=== PATIENT | female | born 1975 | race African-American/Black ===

== ENCOUNTER 2016-08-15 09:37 | Emergency (ER) | payer SELFPAY | END 2016-08-15 10:59 | disposition home or self-care (01) | LOC: D.ER 09:37 | DX: R51 Headache (principal) ==

== ENCOUNTER 2016-09-07 09:09 | Emergency (ER) | payer SELFPAY | END 2016-09-07 10:59 | disposition home or self-care (01) | LOC: D.ER 09:09 | DX: R51 Headache (principal) ==

== ENCOUNTER 2018-09-24 07:07 | Emergency (ER) | payer SELFPAY ==
[~2018-09-24] VITALS: Ht 167.6 cm; Wt 77.3 kg
[2018-09-24 07:09] VITALS: Ht 167.6 cm; Wt 77.3 kg
[2018-09-24 07:53] LABS: BASOPHILS 0.7 % (0-2); EOSINOPHILS 0.4 % (0-7); HEMATOCRIT 37.7 % (36.0-48.0); HEMOGLOBIN 11.8 g/dL (12-16); IMMATURE GRANULOCYTES 0.1 % (0-5); LYMPHOCYTES 27.4 % (15-50); MCH 23.3 pg (26.0-34.0); MCHC 31.3 g/dL (31.0-37.0); MCV 74.4 fL (80.0-100.0); MEAN PLATELET VOLUME 9.6 fL (7.4-10.4); MONOCYTES 6.2 % (2-11); NEUTROPHILS 65.2 % (40-80); RBC 5.07 10x6/uL (4.00-5.40); RDW 15.1 % (11.5-14.5); WBC 7.6 10x3/uL (4.8-10.8)
[2018-09-24 07:59] LABS: PLATELET COUNT 343 10x3/uL (130-400)
[2018-09-24 08:06] LABS: ALBUMIN 3.6 g/dL (3.4-5.0); ALKALINE PHOSPHATASE 63 U/L (46-116); ALT (SGPT) 28 U/L (10-68); BILIRUBIN - TOTAL 0.33 mg/dL (0.2-1.3); CALC OSMOLALITY 279 mosm/kg (275-300); CALCIUM 8.7 mg/dL (8.5-10.1); CARBON DIOXIDE 25.9 mmol/L (21.0-32.0); CHLORIDE - SERUM 106 mmol/L (98-107); CREATININE - SERUM 0.8 mg/dL (0.6-1.3); GLUCOSE 112 mg/dL (74-106); PROTEIN - SERUM 8.5 g/dL (6.4-8.2); SODIUM 141 mmol/L (136-145); UREA NITROGEN 7 mg/dL (7-18); eGFR NON AFRICAN AMERICAN 83 mL/min (90-120)
[2018-09-24 08:12] LABS: HCG - QUANTITATIVE (MATERNAL) 0 mIU/mL
[2018-09-24 08:16] LABS: APPEARANCE CLEAR (CLEAR); BACTERIA FEW /hpf (NONE SEEN); BILIRUBIN NEGATIVE (NEGATIVE); COLOR YELLOW (YELLOW); EPITHELIAL CELLS 0-5 /hpf (0-5); GLUCOSE NEGATIVE (NEGATIVE); KETONE NEGATIVE (NEGATIVE); MUCUS <1+ /lpf (NONE SEEN); NITRITE NEGATIVE (NEGATIVE); PROTEIN NEGATIVE (NEGATIVE); RED CELLS - URINE OCC /hpf (0-5); SPECIFIC GRAVITY 1.015 (1.005-1.020); UROBILINOGEN NORMAL (NORMAL); WHITE CELLS - URINE OCC /hpf (0-5)
[2018-09-24] MEDS ORDERED: ZOFRAN ODT4 MG/UDTAB PO (08:20)
[2018-09-24] MEDS ORDERED: ZANTAC300 MG PO (08:22)
[2018-09-24 08:30] VITALS: BP 146/105
== END 2018-09-24 08:31 | disposition home or self-care (01) ==
LOC: D.ER 07:07
PROVIDERS: Emergency Medicine
DX: A08.4 Viral intestinal infection, unspecified (principal)

== ENCOUNTER 2019-05-26 23:02 | Emergency (ER) | payer MEDICAID ==
[~2019-05-26] VITALS: Ht 167.6 cm; Wt 74.8 kg
[~2019-05-26 23:02] MED LIST: ZANTAC300 MG PO; ZOFRAN ODT4 MG/UDTAB PO
[2019-05-26 23:29] VITALS: Ht 167.6 cm; Wt 74.8 kg
[2019-05-27] MEDS ORDERED: ELAVIL10 MG PO (01:30)
[2019-05-27] MEDS ORDERED: NORVASC5 MG PO (01:30)
[2019-05-27] MEDS ORDERED: ZOFRAN8 MG PO (01:30)
[2019-05-27] MEDS ORDERED: NAPROSYN500 MG PO (01:30)
[2019-05-27 02:30] VITALS: BP 146/110
== END 2019-05-27 02:43 | disposition home or self-care (01) ==
LOC: D.ER 23:02
DX: R51 Headache (principal); R03.0 Elevated blood-pressure reading, without diagnosis of hypertension; R11.0 Nausea